=== PATIENT | female | born 1945 | race Two or more races ===

== ENCOUNTER 2018-03-27 22:21 | Emergency (ER) | payer OTHER ==
[~2018-03-27] VITALS: Ht 152.4 cm; Wt 81.6 kg
[2018-03-27] MEDS ORDERED: ACETAMINOPHEN 325 MG TAB PO ONE (22:45)
[2018-03-27 23:09] LABS: Basophils # (auto) 0 uL; Basophils % (auto) 0.4 % (0.0-2.0); Eosinophils # (auto) 0 uL; Lymphocytes # (auto) 0.2 uL; Monocytes # (auto) 0.6 uL; Neutrophils # (auto) 7.5 uL; Nucleated Red Blood Cells % 0.5 %
[2018-03-27 23:11] LABS: Hematocrit 30.4 % (36.0-46.0); Lymphocytes % (auto) 1.9 % (10.0-50.0); Mean Corpuscular Hemoglobin 24.6 pg (28.0-32.0); Mean Corpuscular Hgb Conc. 32.8 g/dL (32.0-36.0); Mean Corpuscular Volume 75.1 fL (80.0-100.0); Monocytes % (auto) 7.7 % (0.0-12.0); Red Blood Cells 4.04 10^6/uL (4.0-5.20); White Blood Cell 8.4 10^3/uL (4.4-10.8)
[2018-03-27 23:24] LABS: Platelet Count (auto) 51 10^3/uL (140-450)
[2018-03-27 23:25] LABS: INR 1.06 (0.9-1.15); Partial Thromboplastin Time 33.4 sec (22.64-33.71); Prothrombin Time 11.6 sec (9.37-12.3)
[2018-03-27 23:28] LABS: Albumin 2.7 g/dL (3.4-5.0); BUN/Creatinine Ratio 19.6; Calcium 8.4 mg/dL (8.5-10.1); Magnesium 1.5 mg/dL (1.6-2.6); Potassium 3.9 mmol/L (3.5-5.1)
[2018-03-27 23:30] LABS: Lactic Acid w/Reflex 7.6 mmol/L (0.4-2.0)
[2018-03-27 23:33] LABS: Bilirubin, Total 0.8 mg/dL (0.2-1.0)
[2018-03-28] MEDS ORDERED: cefTRIAXone 1GM/10ml IVPUSH 10 ML IV ONE (02:00)
[2018-03-28] MEDS ORDERED: VANCOMYCIN 1GM/250ML 250 ML IV ONE (02:00)
[2018-03-28 03:01] LABS: Urine Specific Gravity 1.014 (1.001-1.035)
[2018-03-28 03:09] LABS: Urine Blood 2+ /uL (Negative)
[2018-03-28 03:10] LABS: Urine Bacteria MA /hpf (None Seen); Urine WBC 80 /hpf (0 - 5)
[2018-03-28 09:42] VITALS: BP 122/75
== END 2018-03-28 09:47 | disposition short-term general hospital (02) ==
LOC: ER 22:21 → EDBD 22:21 → ER 03-28 09:47
DX: N39.0 Urinary tract infection, site not specified (principal); K80.20 Calculus of gallbladder without cholecystitis without obstruction; E86.0 Dehydration; R79.89 Other specified abnormal findings of blood chemistry; E87.2 Acidosis; N10 Acute pyelonephritis; E11.9 Type 2 diabetes mellitus without complications; R74.8 Abnormal levels of other serum enzymes; Z85.3 Personal history of malignant neoplasm of breast
CPT/HCPCS: 36415; 71045; 74176; 80053; 81001; 82150; 83605; 83690; 83735; 83880; 84484; 85025; 85610; 85730; 86850; 86900; 86901; 87040; 87077; 87186; 96365; 96375; 99285; J3370; 93005